=== PATIENT | female | born 1985 | race Caucasian/White ===

== ENCOUNTER 2020-09-28 17:43 | Emergency (ER) | payer SELFPAY ==
[~2020-09-28] VITALS: Ht 170.2 cm; Wt 81.6 kg
[2020-09-28 17:46] VITALS: BP 113/64
--- NOTE | 2020-09-28 18:15 | NUR ---
covid specimen collected and sent to lab.
--- NOTE | 2020-09-28 18:23 | NUR ---
Patient discharged to home in stable condition. Written and verbal after care instructions given. Patient verbalizes understanding of instruction.
--- NOTE | 2020-09-29 10:06 | NUR ---
COVID PCR POSITIVE
== END 2020-09-28 18:27 | disposition home or self-care (01) ==
LOC: ER 17:54
DX: U07.1 COVID-19 (principal); J06.9 Acute upper respiratory infection, unspecified; R43.8 Other disturbances of smell and taste
CPT/HCPCS: 99283; C9803; U0003